=== PATIENT | male | born 1995 | race Caucasian/White ===

== ENCOUNTER 2018-01-12 12:16 | Emergency (ER) | payer SELFPAY ==
[~2018-01-12] VITALS: Ht 182.9 cm; Wt 79.4 kg
[2018-01-12 13:56] LABS: Basophils # (auto) 0 uL; Basophils % (auto) 0.2 % (0.0-2.0); Eosinophils # (auto) 0 uL; Monocytes # (auto) 0.8 uL
[2018-01-12 13:57] VITALS: BP 146/84
[2018-01-12 13:58] LABS: Eosinophils % (auto) 0.1 % (0.0-7.0); Hematocrit 53.2 % (41.0-53.0); Hemoglobin 18.2 g/dL (13.5-17.5); Lymphocytes % (auto) 9.5 % (10.0-50.0); Mean Corpuscular Hemoglobin 30.7 pg (28.0-32.0); Mean Corpuscular Hgb Conc. 34.1 g/dL (32.0-36.0); Monocytes % (auto) 7.1 % (0.0-12.0); Neutrophils % (auto) 83.1 % (37.0-80.0); Nucleated Red Blood Cells % 0.1 %; Platelet Count (auto) 257 10^3/uL (140-450); Red Blood Cells 5.91 10^6/uL (4.5-5.90); White Blood Cell 10.8 10^3/uL (4.4-10.8)
[2018-01-12 14:21] LABS: Albumin 4.6 g/dL (3.4-5.0); BUN/Creatinine Ratio 10.8; Bilirubin, Total 0.7 mg/dL (0.2-1.0); Calcium 9.6 mg/dL (8.5-10.1); Potassium 3.5 mmol/L (3.5-5.1)
== END 2018-01-12 14:56 | disposition short-term general hospital (02) ==
LOC: ER 12:16
DX: S06.5X0A Traumatic subdural hemorrhage without loss of consciousness, initial encounter (principal); I10 Essential (primary) hypertension; F17.210 Nicotine dependence, cigarettes, uncomplicated; F12.10 Cannabis abuse, uncomplicated; W19.XXXA Unspecified fall, initial encounter; Y93.89 Activity, other specified; Y99.8 Other external cause status; Y92.89 Other specified places as the place of occurrence of the external cause
CPT/HCPCS: 36415; 70450; 80053; 85025; 94761

== ENCOUNTER 2020-08-08 03:20 | Emergency (ER) | payer SELFPAY ==
[~2020-08-08] VITALS: Ht 182.9 cm; Wt 95.3 kg
[2020-08-08 05:28] VITALS: BP 134/75
== END 2020-08-08 05:43 | disposition left against medical advice (07) ==
LOC: ER 03:22
DX: S93.401A Sprain of unspecified ligament of right ankle, initial encounter (principal); F17.210 Nicotine dependence, cigarettes, uncomplicated; X50.1XXA Overexertion from prolonged static or awkward postures, initial encounter; Y93.89 Activity, other specified; Y92.89 Other specified places as the place of occurrence of the external cause; Y99.8 Other external cause status
CPT/HCPCS: 73610; 73630

== ENCOUNTER 2020-08-14 15:26 | Emergency (ER) | payer SELFPAY ==
[~2020-08-14] VITALS: Ht 182.9 cm; Wt 88.5 kg
[2020-08-14 16:04] VITALS: BP 136/91
[2020-08-14] MEDS ORDERED: IBUPROFEN 800 MG TAB PO ONE (16:45)
== END 2020-08-14 17:06 | disposition home or self-care (01) ==
LOC: ER 15:26
DX: S96.911D Strain of unspecified muscle and tendon at ankle and foot level, right foot, subsequent encounter (principal); X58.XXXD Exposure to other specified factors, subsequent encounter
CPT/HCPCS: 73610